=== PATIENT | male | born 1960 | race Caucasian/White ===

== ENCOUNTER → 2023-05-22 08:03 | Outpatient (BNVA) | payer MEDICARE, SELFPAY | PROVIDERS: Visit Provider Family Medicine | DX: I10 Essential (primary) hypertension (principal); Z13.220 Encounter for screening for lipoid disorders; M06.9 Rheumatoid arthritis, unspecified; Z90.5 Acquired absence of kidney | CPT/HCPCS: 80053; 80061; 85025 ==

== ENCOUNTER → 2023-06-15 11:48 | Outpatient (BNVA) | payer MEDICARE, SELFPAY | PROVIDERS: PCP Family Medicine; Visit Provider Family Medicine | DX: M06.9 Rheumatoid arthritis, unspecified (principal); R73.01 Impaired fasting glucose | CPT/HCPCS: 83036; 84550; 85025; 85651; 86140; 86160; 86162; 86235; 86255; 86376; 86431 ==

== ENCOUNTER → 2023-09-17 08:37 | Outpatient (BNVA) | payer MEDICARE, SELFPAY | PROVIDERS: PCP Family Medicine; Referring Provider Family Medicine; Visit Provider Internal Medicine Rheumatology | DX: Z79.899 Other long term (current) drug therapy (principal); M06.9 Rheumatoid arthritis, unspecified; M05.79 Rheumatoid arthritis with rheumatoid factor of multiple sites without organ or systems involvement; Z71.85 Encounter for immunization safety counseling | CPT/HCPCS: 99204 ==

== ENCOUNTER → 2023-10-23 11:12 | Outpatient (BNVA) | payer MEDICARE, SELFPAY | PROVIDERS: PCP Family Medicine; Visit Provider Internal Medicine Rheumatology | DX: M05.79 Rheumatoid arthritis with rheumatoid factor of multiple sites without organ or systems involvement; Z79.899 Other long term (current) drug therapy; Z11.59 Encounter for screening for other viral diseases | CPT/HCPCS: 80076; 82565; 86140; 86704; 86803; 87340 ==

== ENCOUNTER → 2023-10-24 09:15 | Outpatient (BNVA) | payer MEDICARE, SELFPAY | PROVIDERS: PCP Family Medicine; Visit Provider Internal Medicine Rheumatology | DX: Z79.899 Other long term (current) drug therapy (principal); M05.79 Rheumatoid arthritis with rheumatoid factor of multiple sites without organ or systems involvement; Z71.85 Encounter for immunization safety counseling | CPT/HCPCS: 99214 ==

== ENCOUNTER 2023-11-24 07:57 | Emergency (ER) | payer MEDICARE, MEDICAID, SELFPAY ==
[2023-11-24 08:04] VITALS: BP 175/102; PULSE 56; RESP 18; TEMP 36.6; O2SAT 96
--- NOTE | 2023-11-24 08:28 | XRR_ITS ---
PROCEDURE INFORMATION: Exam: XR Thoracic Spine Exam date and time: 11/24/2023 8:58 AM Age: 62 years old Clinical indication: Pain in thoracic spine; Without myelpathy or radiculopathy TECHNIQUE: Imaging protocol: Radiologic exam of the thoracic spine. Views: 3 views. COMPARISON: CR (ABDOMEN, ) 11/24/2023 8:53 AM FINDINGS: Bones/joints: There is mild curvature of the lower thoracic spine convex to the left. Multilevel anterior osteophytes of the thoracic spine consistent with moderate degenerative disease. No compression deformities. No spondylolisthesis. Soft tissues: Unremarkable. XR/XR thoracic spine 3V* [id number] IMPRESSION: 1. Multilevel moderate degenerative disease of the thoracic spine. 2. No compression deformities.
--- NOTE | 2023-11-24 08:28 | XRR_ITS ---
PROCEDURE INFORMATION: Exam: XR Chest Exam date and time: 11/24/2023 8:53 AM Age: 62 years old Clinical indication: Condition or disease; Intestinal condition; Constipation; Prior surgery; Surgery date: 6+ months; Surgery type: Partial nephrectomy; Additional info: Reported constipation and pain TECHNIQUE: Imaging protocol: Radiologic exam of the chest. Views: 1 view. COMPARISON: No relevant prior studies available. FINDINGS: Lungs: Tiny calcified granuloma in the right lower lung zone. Pleural spaces: Unremarkable. No pleural effusion. No pneumothorax. Heart/Mediastinum: Unremarkable. No cardiomegaly. Bones/joints: Unremarkable. PROCEDURE INFORMATION: Exam: XR Abdomen Exam date and time: 11/24/2023 8:53 AM Age: 62 years old Clinical indication: Condition or disease; Intestinal condition; Constipation; Prior surgery; Surgery date: 6+ months; Surgery type: Partial nephrectomy; Additional info: Reported constipation and pain TECHNIQUE: Imaging protocol: Radiologic exam of the abdomen. Views: 2 Views. Upright and supine views. COMPARISON: No relevant prior studies available. FINDINGS: Gastrointestinal tract: Normal. No bowel dilation. Intraperitoneal space: Normal. No free air. Bones/joints: Heterotopic ossifications at the medial aspect of the right femoral neck. There moderate degenerative disease of both hip joints with narrowing of the weight-bearing areas and marginal osteophytes. There is right hip chondrocalcinosis. XR/XR acute abdomen series 60170 IMPRESSION: No acute cardiopulmonary process. IMPRESSION: No pneumoperitoneum or bowel obstruction. Above average fecal loading in the ascending colon.
--- NOTE | 2023-11-24 08:30 | W.ED.ABDPA2 ---
HPI - Abdominal Pain General: Chief Complaint: Abdominal Pain Stated Complaint: abd and back pain Time Seen by Provider: 11/24/23 08:22 History of Present Illness: 62-year-old male recently started back on methotrexate as well as tramadol presents emergency department chief complaint of ongoing back pain and abdominal pain with concerns of constipation. 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 Associated Symptoms: Reports constipation; Denies chills and fever(s) Review of Systems General: Reports: 10 or more systems reviewed and unremarkable except in HPI and below Const: Denies: fever(s), chills, fatigue or malaise Eyes: Denies: change in vision or blurry vision Card: Denies: chest pain or palpitations Resp: Denies: dyspnea or productive cough GI: Reports: abdominal pain and constipation Musc: Reports: back pain Skin/Breast: Denies: rash or pruritus Neuro: Denies: headache(s) Psych: Denies: anxiety or depression Eduin/Lymph: Denies: easy bleeding All/Imm: Denies: urticaria, throat swelling or facial swelling PFS ED PFSH: Medical History Immunization counseling High risk medication use Seropositive rheumatoid arthritis of multiple sites Hypertension Rheumatoid arthritis Hx of malignant melanoma Hx of malignant neoplasm of kidney Rotator cuff sprain Cancer of eyeball Surgical History Hx of kidney removal Family History Other Hypertension Rheumatoid arthritis Social History Smoking and tobacco/nicotine status: never used tobacco/nicotine Second hand smoke exposure: No Alcohol intake: never Substance/Drug Use: current Substance/Drug use frequency: few times a month Other substance/drug use details: has medical card Caregiver/support person: Yes Lives independently: Yes Household members: spouse Marital status: Current occupational status: disabled Current gender identity: Male Special jf needs: No Agree to transfusion: Yes Physical Exam Narrative: EXAM NARRATIVE: Patient appears to be in moderate distress due to pain and discomfort located to the left lateral flank and abdomen. HENMT: COMMON NORMALS: normocephalic and atraumatic HEAD & SCALP: normocephalic and atraumatic Eye: COMMON NORMALS: Equal, round and reactive pupils present and EOMs intact bilaterally PUPIL: Yes Equal, round and reactive pupils present Neck/C-Spine: COMMON NORMALS: full ROM, supple and no JVD Lymph: LYMPHATIC: no lymphadenopathy noted Chest: COMMONS NORMALS: normal inspection of the chest and normal palpation of entire chest wall Resp: COMMON NORMALS: normal respiratory effort, No retractions and clear to auscultation bilaterally EFFORT & INSPECTION: Yes able to speak in complete sentences and Yes symmetric chest movement AUSCULTATION: clear to auscultation bilaterally Cardio: COMMON NORMALS: no JVD, regular rate and regular rhythm RATE: regular rate RHYTHM: regular rhythm GI: OTHER: Moderate pain to palpation located to left lateral flank paravertebrally no obvious overlying rash appreciated this is also located approximately T7-T8-T9 region with moderate pain over the rib margin appreciated Extremity: COMMON NORMALS: normal to inspection and full ROM Neuro: COMMON NORMALS: CN's II-XII intact bilaterally, moves all extremities and no focal motor deficits Psych: COMMON NORMALS: mental status grossly normal, Normal thought process present, cooperative and normal affect THOUGHT PROCESS: Normal thought process present Skin: COMMON NORMALS: no rashes or lesions noted GENERAL SKIN EXAM: no rashes or lesions noted Course Vital Signs: Vital signs: Vital Signs Temperature 97.9 F 11/24/23 08:04 Pulse Rate 56 L 11/24/23 08:04 Respiratory Rate 18 11/24/23 08:04 Blood Pressure 175/102 11/24/23 08:04 Pulse Oximetry 95 11/24/23 10:25 Oxygen Delivery Me thod Room Air 11/24/23 10:25 MDM - Abdominal Pain Medical Decision Making Due to patient's symptoms and condition x-ray imaging of the thoracic spine as well as the abdomen will be obtained patient will be provided a dose of Relistor for underlying concerns of presumed opiate induced constipation we will continue to follow. X-ray imaging revealed significant degenerative disc disease and back disease in the thoracic spine abdominal x-ray series did not reveal any obvious bowel obstructions did reveal some constipation patient upon reassessment remarks improvement of his discomfort and pain we will be treating him accordingly with additional medications for his symptoms I did advise further follow-up with primary care in 2 to 3 days in which he was advised to return the interim if any of his symptoms persist or worse. Lab Data Labs/Radiology: Radiology Impressions Chest/Abdomen X-ray 11/24/23 08:28 IMPRESSION: No acute cardiopulmonary process. IMPRESSION: No pneumoperitoneum or bowel obstruction. Above average fecal loading in the ascending colon. Thoracic Spine X-Ray 11/24/23 08:28 IMPRESSION: 1. Multilevel moderate degenerative disease of the thoracic spine. 2. No compression deformities. All radiology interpretation(s) finalized by discharge Discharge Plan Discharge Patient Disposition: Home Clinical Impression: Drug induced constipation, Degenerative joint disease of low back Condition: Stable Prescriptions: [place] with Docusate Sodium 8.6-50 mg tablet 1 tab-cap PO DAILY PRN (Reason: constipation) Qty: 10 0RF No Action folic acid 1 mg tablet 1 mg PO DAILY Qty: 90 1RF prednisone 5 mg tablet 5 mg PO DAILY Qty: 90 1RF tramadol 50 mg tablet 50 mg PO Q6H PRN (Reason: pain) Qty: 120 1RF lisinopril-hydrochlorothiazide 20-12.5 mg tablet 1.5 tab PO DAILY PRN (Reason: Hypertension) methotrexate sodium 2.5 mg tablet 10 mg PO Q7D Rx Instructions: 10 mg po BID ON SUNDAY Discharge Orders: Discharge ED (Routine); Ordered 11/24/23 Ordered By: Joe Leigh Referrals: Lorna Vickers MD [Primary Care Provider] - 1-3 days Discharge Diet: Advance as tolerated Discharge Activity: Increase activity as tolerated Patient Instructions: Constipation - Adult, Degenerative Disc Disease (ED), Opioid Safety, Pain Management Activity Restrictions/Additional Instructions: Please further follow-up with your primary care doctor in 2 to 3 days, please take medications as prescribed in which please return the interim if any of your symptoms persist or worse. It is advised you to increase your water consumption to water this will reduce likelihood of additional constipation also you can use medication as provided to you today to the ER to help you out with your constipation especially if you decide to restart your tramadol. Coding Level of Care Code ED Orthotics Prosthetics Assistant for Ana Parada
[2023-11-24] MEDS: methylnaltrexone 12 /0.6 mL INJ 12 MG SUBCUT (09:21)
[2023-11-24 09:27] VITALS: O2SAT 95
[2023-11-24 10:25] VITALS: O2SAT 95
[2023-11-24 11:56] VITALS: BP 175/102; PULSE 56; RESP 18; TEMP 36.6; O2SAT 95
== END 2023-11-24 11:57 | disposition home or self-care (01) ==
PROVIDERS: Emergency Provider Emergency Medicine; PCP Family Medicine
DX: K59.03 Drug induced constipation (principal); T40.425A Adverse effect of tramadol, initial encounter; M47.816 Spondylosis without myelopathy or radiculopathy, lumbar region; I10 Essential (primary) hypertension; Z85.528 Personal history of other malignant neoplasm of kidney; Z85.840 Personal history of malignant neoplasm of eye
CPT/HCPCS: 72072; 74022; 96372; 99284; J2212

== ENCOUNTER → 2024-06-09 16:34 | Outpatient (BNVA) | payer MEDICARE, SELFPAY | PROVIDERS: PCP Family Medicine; Visit Provider Family Medicine | DX: Z79.899 Other long term (current) drug therapy (principal); Z12.5 Encounter for screening for malignant neoplasm of prostate; M05.79 Rheumatoid arthritis with rheumatoid factor of multiple sites without organ or systems involvement | CPT/HCPCS: 80053; 80061; 82306; 84443; 85025; G0103 ==

== ENCOUNTER → 2024-07-30 09:34 | Outpatient (BNVA) | payer MEDICARE, SELFPAY | PROVIDERS: PCP Family Medicine; Visit Provider Internal Medicine Rheumatology | DX: M05.79 Rheumatoid arthritis with rheumatoid factor of multiple sites without organ or systems involvement (principal); Z79.899 Other long term (current) drug therapy; Z71.85 Encounter for immunization safety counseling; Z11.1 Encounter for screening for respiratory tuberculosis; Z11.59 Encounter for screening for other viral diseases | CPT/HCPCS: 99214 ==